=== PATIENT | female | born 1965 | race Caucasian/White ===

== ENCOUNTER 2017-08-26 08:29 | Emergency (ER) | payer OTHER ==
[~2017-08-26] VITALS: Ht 167.6 cm; Wt 63.5 kg
[2017-08-26] MEDS ORDERED: ZOCOR20 MG (08:36)
== END 2017-08-26 14:26 | disposition home or self-care (01) ==
LOC: ER 08:29
DX: S32.512A Fracture of superior rim of left pubis, initial encounter for closed fracture (principal); W01.198A Fall on same level from slipping, tripping and stumbling with subsequent striking against other object, initial encounter; Z89.612 Acquired absence of left leg above knee; Y93.01 Activity, walking, marching and hiking; Y92.814 Boat as the place of occurrence of the external cause; Y99.8 Other external cause status